=== PATIENT | female | born 1970 | race American Indian/Alaskan Native ===

== ENCOUNTER 2018-01-13 04:49 | Emergency (ER) | payer OTHER ==
[2018-01-13 05:25] VITALS: BP 126/83
--- NOTE | 2018-01-13 08:01 | Emergency Department Report ---
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 Patient states early Tuesday morning she noticed that she had some bites on her face and arms. Patient states she went to the nearest emergency room [place] and was given some hydrocortisone cream and Benadryl for the itching to treat the bite. Patient reports here today stating that she is to return to work Tuesday and needs a note and assessment clear her to go back to work. Patient states that itching is controlled. She states that bite parry are almost resolved and gone. She states she does not noticed any new bite parry Tuesday. ED Past Medical Hx - Past Medical History Previous Medical History?: No - Surgical History Past Surgical History?: No - Social History Smoking Status: Never Smoker Substance Use Type: None ED Review of Systems ROS: Stated complaint: MEDICAL CLEARANCE Other details as noted in HPI Constitutional: denies: chills, fever Eyes: denies: eye pain, eye discharge, vision change ENT: denies: ear pain, throat pain Respiratory: denies: cough, shortness of breath, wheezing Cardiovascular: denies: chest pain, palpitations Endocrine: no symptoms reported Gastrointestinal: denies: abdominal pain, nausea, vomiting, diarrhea Genitourinary: denies: urgency, dysuria, discharge Musculoskeletal: denies: back pain, joint swelling, arthralgia Skin: denies: rash, lesions Neurological: denies: headache, weakness, paresthesias Psychiatric: denies: anxiety, depression Hematological/Lymphatic: denies: easy bleeding, easy bruising Physical Exam - Physical Exam Vital Signs: Vital Signs 01/13/18 05:20 Temperature 98.3 F Pulse Rate 64 Respiratory 18 Rate Blood Pressure 126/83 O2 Sat by Pulse 99 Oximetry Physical Exam: GENERAL: Alert and oriented x3, no apparent distress, Normal Gait, atraumatic. HEAD: Head is normocephalic and a-traumatic. MOUTH:Mouth is well hydrated and without lesions. Tonsils nonerythematous or swollen, Uvula midline, Tongue not elevated. Mucous membranes are moist. Posterior pharynx clear, no exudate or lesions. Patent airways. LUNGS: Symetrical with respiration, CTAB. SKIN: Warm and dry, mild erythematous, healed insect bite parry seen on the left arm, no swelling, nontender to palpation. No other lesions, No ulceration or induration present. ED Course Vital Signs 01/13/18 05:20 Temperature 98.3 F Pulse Rate 64 Respiratory 18 Rate Blood Pressure 126/83 O2 Sat by Pulse 99 Oximetry ED Medical Decision Making - Medical Decision Making 47-year-old female presents with status post insect bite 5 days ago. Patient is on corticosteroid cream as well as Benadryl. I discussed the patient and she may discontinue the Benadryl if itching stopped since she claims she cannot go to work taking Benadryl as makes her drowsy. I discussed with the patient to continue uses steroid cream and apply to bite parry to help with the itching if any. I discussed the patient and she is able to return to work next scheduled shift. Vital signs are normal patient is in no acute distress Critical care attestation.: If time is entered above; I have spent that time in minutes in the direct care of this critically ill patient, excluding procedure time. ED Disposition Clinical Impression: Insect bite (nonvenomous) of left hand, subsequent encounter Bed bug bite Qualifiers: Encounter type: subsequent encounter Qualified Code(s): W57.XXXD - Bitten or stung by nonvenomous insect and other nonvenomous arthropods, subsequent encounter Disposition: DC-01 TO HOME OR SELFCARE Is pt being admited?: No Does the pt Need Aspirin: No Condition: Stable Instructions: Insect Bite or Sting (ED) Additional Instructions: Make sure to follow up with the primary care physician as discussed. Take all your medications as you've been prescribed. If you have any worsening symptoms or develop new symptoms please return to ED immediately. Referrals: PRIMARY CARE, [Primary Care Provider] - 3-5 Days KATTY ZAVALA MD [Referring] - 3-5 Days MIGUEL ESPINOZA MD [Staff Physician] - 3-5 Days Forms: Work/School Release Form(ED) Time of Disposition: 08:11
== END 2018-01-13 08:15 | disposition home or self-care (01) ==
LOC: ED 04:49
DX: S00.86XA Insect bite (nonvenomous) of other part of head, initial encounter (principal); S40.862A Insect bite (nonvenomous) of left upper arm, initial encounter; S40.861A Insect bite (nonvenomous) of right upper arm, initial encounter; W57.XXXA Bitten or stung by nonvenomous insect and other nonvenomous arthropods, initial encounter; Y93.89 Activity, other specified; Y92.89 Other specified places as the place of occurrence of the external cause; Y99.8 Other external cause status
CPT/HCPCS: 99281